=== PATIENT | female | born 1975 | race Caucasian/White ===

== ENCOUNTER 2017-01-03 19:17 | Emergency (ER) | payer MEDICAID, OTHER ==
[2017-01-03 20:39] VITALS: O2SAT 100
[2017-01-03] MEDS ORDERED: Naproxen 550 mg Tab PO STA (21:28)
[2017-01-03 22:06] LABS: BASO % 0.5 % (0.0-2.0); EOS % 0.8 % (0.0-4.0); HEMATOCRIT 35.6 % (34.0-47.0); LYMPH # 1.8 K/uL (1.0-4.3); LYMPH % 27.6 % (20.0-40.0); MEAN CORPUSCULAR HEMOGLOBIN 27.1 pg (27.0-31.0); MEAN CORPUSCULAR HGB CONC 31.5 g/dL (33.0-37.0); MEAN PLATELET VOLUME 8.8 fL (7.2-11.7); MONO # 0.4 K/uL (0.0-0.8); RED CELL DISTRIBUTION WIDTH 14.3 % (11.5-14.5); WHITE BLOOD COUNT 6.4 K/uL (4.8-10.8)
[2017-01-03] MEDS ORDERED: Naproxen 550 mg Tab PO ONE (22:08)
[2017-01-03 22:13] LABS: CHLORIDE 98 mmol/L (98-107)
[2017-01-03 22:14] LABS: POTASSIUM 3.9 mmol/L (3.6-5.2); SODIUM 134 mmol/L (132-148)
[2017-01-03 22:16] LABS: ALB/GLOB RATIO 1.3 (1.0-2.1); ALKALINE PHOSPHATASE 57 U/L (38-126); ALT/SGPT 10 U/L (9-52); AST/SGOT 26 U/L (14-36); BILIRUBIN,TOTAL 0.6 mg/dL (0.2-1.3); BLOOD UREA NITROGEN 14 mg/dL (7-17); CALCIUM 8.5 mg/dl (8.6-10.4); CARBON DIOXIDE 24 mmol/L (22-30); GFR AFRICAN-AMERICAN > 60; GLUCOSE,RANDOM 89 mg/dL (65-105); TOTAL PROTEIN 7.4 g/dL (6.3-8.3)
[2017-01-03 22:25] LABS: RBC URINE 14 /hpf (0-3); URINE BACTERIA OCC (<OCC); URINE BILIRUBIN NEGATIVE (NEGATIVE); URINE BLOOD NEGATIVE (NEGATIVE); URINE COLOR Yellow (YELLOW); URINE GLUCOSE (UA) NORMAL (Normal); URINE KETONE NEGATIVE (NEGATIVE); URINE LEUKOCYTE ESTERASE 1+ Leu/uL (Negative); URINE PROTEIN NEGATIVE (NEGATIVE); URINE UROBILINOGEN NORMAL mg/dL (0.2-1.0); WBC URINE 19 /hpf (0-5)
--- NOTE | 2017-01-03 22:55 | C.PDOC ---
History Of Present Illness 41 year old patient presents to the ED complaining of chest pain that feels like her heart flipped. Patient reports this has been occurring multiple times over the last few days. Patient currently denies palpitations, chest pain, or shortness of breath. Patient also complains of right groin pain. Patient had a bladder sling placed about a year ago. Since the surgery, patient is concerned it was not done adequately due to the pain. Patient states the pain has been localized in the right inguinal crease, but is not radiating. The pain is exacerbated by ambulation. Patient did not take any medications for the pain. Time Seen by Provider: 01/03/17 21:12 Chief Complaint (Nursing): Shortness Of Breath History Per: Patient History/Exam Limitations: no limitations Onset/Duration Of Symptoms: Days (few days), Worse Since (today) Current Symptoms Are (Timing): Still Present Quality: "Pain" Current Respiratory Medications: See Home Med List Severity: Mild Pain Scale Rating Of: 3 Recent travel outside of the [place]: No Past Medical History Reviewed: Historical Data, Nursing Documentation, Vital Signs Vital Signs: Last Vital Signs Temp 98.9 F 01/03/17 23:20 Pulse 81 01/03/17 23:20 Resp 20 01/03/17 23:20 BP 100/62 01/03/17 23:20 Pulse Ox 100 01/04/17 02:19 - [facility] Procedures CLOSURE SKIN & SUBCUTANEOUS NEC (04/28/14) TETANUS TOXOID ADMINIST (02/11/14) Family History: States: Unknown Family Hx - Social History Hx Tobacco Use: No Hx Alcohol Use: No Hx Substance Use: No Review Of Systems Except As Marked, All Systems Reviewed And Found Negative. Cardiovascular: Negative for: Chest Pain, Palpitations Respiratory: Negative for: Shortness of Breath Genitourinary: Positive for: Other (right groin pain) Physical Exam - Physical Exam Appears: Non-toxic, No Acute Distress Skin: Warm, Dry Head: Atraumatic, Normacephalic Neck: Normal ROM, Supple Chest: Symmetrical Cardiovascular: Rhythm Regular Respiratory: Normal Breath Sounds, No Rales, No Rhonchi, No Wheezing Gastrointestinal/Abdominal: Soft, No Tenderness Back: Normal Inspection, No CVA Tenderness Pelvic: Normal External Exam, Other (point tenderness to the distal end of the inguinal ligament) Extremity: Normal ROM Neurological/Psych: Oriented x3 Gait: Steady ED Course And Treatment - Laboratory Results Result Diagrams: 01/03/17 21:54 01/03/17 21:54 ECG: Interpreted By Me ECG Rhythm: Sinus Rhythm ECG Interpretation: No Acute Changes Rate From EC O2 Sat by Pulse Oximetry: 100 (RA) Pulse Ox Interpretation: Normal - Radiology CXR: Interpreted by Me CXR Interpretation: Yes: No Acute Disease Progress Note: Plan: -EKG. -Chest XR. -Labs. -Naproxen Medical Decision Making Medical Decision Making: Pt remained stable in the ED Results discussed with pt No indication of ACS PE or TAD, ad continues soft however UA slightly (+) will cover Plan dc home Disposition - Disposition Disposition: HOME/ ROUTINE Disposition Time: 22:51 Condition: GOOD Prescriptions: Nitrofurantoin Macrocrystals [Macrobid] 1 cap PO BID #14 cap Naproxen [Naprosyn] 1 tab PO BID PRN #25 tab PRN Reason: Pain Instructions: Urinary Tract Infection in Women (ED), Chest Pain (ED) - Clinical Impression Clinical Impression: Chest pain, Inguinal pain, UTI (urinary tract infection) - Scribe Statement The provider has reviewed the documentation as recorded by the Scribe Rosaura Hwang Provider Attestation: All medical record entries made by the Scribe were at my direction and personally dictated by me. I have reviewed the chart and agree that the record accurately reflects my personal performance of the history, physical exam, medical decision making, and the department course for this patient. I have also personally directed, reviewed, and agree with the discharge instructions and disposition.
[2017-01-03 23:22] VITALS: BP 100/62; PULSE 81; RESP 20; TEMP 98.9
--- NOTE | 2017-01-04 11:42 | RAD ---
HISTORY: chest pain COMPARISON: None available. TECHNIQUE: Chest PA and lateral FINDINGS: LUNGS: No focal consolidation. Please note that chest x-ray has limited sensitivity for the detection of pulmonary masses. PLEURA: No significant pleural effusion identified. No definite pneumothorax . CARDIOVASCULAR: The cardiomediastinal silhouette appears within normal limits of size. OSSEOUS STRUCTURES: Degenerative changes of the spine. VISUALIZED UPPER ABDOMEN: Unremarkable. OTHER FINDINGS: None. IMPRESSION: No focal consolidation, significant pleural effusion, or definite pneumothorax identified.
--- NOTE | 2017-01-05 19:05 | CARD ---
APPROVED REPORT EKG Measurement Heart [id number] <Conclusion> Normal sinus rhythm Normal ECG
== END 2017-01-03 23:21 | disposition home or self-care (01) ==
LOC: C.ER 19:17
DX: R07.9 Chest pain, unspecified (principal); N39.0 Urinary tract infection, site not specified; R10.31 Right lower quadrant pain

== ENCOUNTER 2017-06-06 19:39 | Emergency (ER) | payer OTHER ==
[2017-06-06 19:46] VITALS: TEMP 98
--- NOTE | 2017-06-06 20:27 | C.PDOC ---
History Of Present Illness 42 yo female c/o neck pain for 3 days. "When I touch here it hurts." Pain worse with movement. Denies trauma. No change in sensation. Has not taken any medication. Time Seen by Provider: 06/06/17 19:47 Chief Complaint (Nursing): Medical Clearance History Per: Patient History/Exam Limitations: no limitations Onset/Duration Of Symptoms: Days Current Symptoms Are (Timing): Still Present Past Medical History Vital Signs: Last Vital Signs Temp 98.0 F 06/06/17 19:41 Pulse 72 06/06/17 19:41 Resp 16 06/06/17 19:41 BP 116/71 06/06/17 19:41 Pulse Ox 100 06/06/17 19:41 - [facility] Procedures CLOSURE SKIN & SUBCUTANEOUS NEC (04/28/14) TETANUS TOXOID ADMINIST (02/11/14) Family History: States: Unknown Family Hx - Social History Hx Tobacco Use: No Hx Alcohol Use: No Hx Substance Use: No - Immunization History Hx Tetanus Toxoid Vaccination: No Hx Influenza Vaccination: No Hx Pneumococcal Vaccination: No Review Of Systems Except As Marked, All Systems Reviewed And Found Negative. Constitutional: Negative for: Fever Musculoskeletal: Positive for: Neck Pain Neurological: Negative for: Weakness, Numbness Physical Exam - Physical Exam Appears: Well, Non-toxic, No Acute Distress Skin: Normal Color, Warm, Dry Head: Atraumatic, Normacephalic Eye(s): bilateral: Normal Inspection, EOMI Nose: Normal Oral Mucosa: Moist Throat: Normal, No Erythema, No Exudate Neck: Normal ROM (FROM - pain exacerbated with rotation of head), No Midline Cervical Tenderness, Paracervical Tenderness ((+) left trapezius tenderness), Supple Lymphatic: Normal Exam Chest: Symmetrical Cardiovascular: Rhythm Regular Respiratory: Normal Breath Sounds Back: Normal Inspection Extremity: Normal ROM, No Tenderness Extremity: Bilateral: Atraumatic, Normal Color And Temperature Pulses: Left Radial: Normal, Right Radial: Normal Neurological/Psych: Oriented x3, Normal Speech, Normal Motor (5/5 strength against strength), Normal Sensation ED Course And Treatment O2 Sat by Pulse Oximetry: 100 - Other Rad Cervical XR X-Ray: Interpreted by Me, Viewed By Me Interpretation: No fx or dislocation Progress Note: Toradol ordered. On re-evaluation, pain improved. No change in sensation. No chest pain. No SOB. Instructed to follow up with PM D in 1-2 days for further evalaution. Disposition - Disposition Disposition: HOME/ ROUTINE Disposition Time: 20:35 Condition: STABLE Additional Instructions: Follow up with your primary medical doctor or clinic in 2-5 days for further evaluation. Take medications as prescribed. Return to the emergency department at any time if symptoms persist or worsen. Prescriptions: Cyclobenzaprine [Cyclobenzaprine HCl] 10 mg PO TID #20 tab Naproxen [Naprosyn] 1 tab PO BID PRN #20 tab PRN Reason: Pain Instructions: Cervical Strain (DC) Forms: [employer] ([place]) - Clinical Impression Clinical Impression: Cervical strain
[2017-06-06 20:55] VITALS: BP 119/65; PULSE 70; RESP 18
[2017-06-06 20:58] VITALS: O2SAT 100
--- NOTE | 2017-06-07 08:13 | RAD ---
PROCEDURE: Cervical Spine Radiographs. HISTORY: Pain. COMPARISON: None. FINDINGS: BONES: Alignment maintained. No fracture. Dens Intact. DISC SPACES: Normal. SOFT TISSUES: Normal. No prevertebral soft tissue swelling. OTHER FINDINGS: C5-6 by mild uncovertebral hypertrophy IMPRESSION: C5-6 by mild uncovertebral hypertrophy. No fracture or subluxation
== END 2017-06-06 20:56 | disposition home or self-care (01) ==
LOC: C.ER 19:39
DX: S16.1XXA Strain of muscle, fascia and tendon at neck level, initial encounter (principal); X58.XXXA Exposure to other specified factors, initial encounter
CPT/HCPCS: 72040; 96372; 99282; J1885